=== PATIENT | female | born 1995 | race Caucasian/White ===

== ENCOUNTER 2016-03-05 14:07 | Emergency (ER) | payer OTHER ==
[2016-03-05 15:09] LABS: MEAN CORPUSCULAR HEMOGLOBIN 29.8 pg (27.0-33.0); MEAN CORPUSCULAR HGB CONC 33.6 g/dl (32.0-36.5); MEAN CORPUSCULAR VOLUME 88.5 fl (80.0-96.0); RED CELL DISTRIBUTION WIDTH 12.1 % (11.5-14.5); WHITE BLOOD COUNT 8.6 K/mm3 (4.0-10.0)
[2016-03-05 15:15] LABS: CONTROL LINE HCG INT CTR LINE PRESENT
--- NOTE | 2016-03-05 16:20 | REP ---
Emergency first trimester obstetric sonography: History: Vaginal bleeding. Findings: Transabdominal and transvaginal scanning are performed. Uterine dimensions are 8.4 x 4.0 x 4.9 cm. There is a small sac-like structure in the uterine endometrium with a mean sac size diameter of 4.5 mm. This would correspond with a gestational age estimate of 5 weeks 1 day. This is only seen on transvaginal scanning. It does not well established echogenic rim or margin. It contains no observable products of conception. No free fluid is seen. The right ovary is seen measuring 2.2 x 2.8 x 2.6 cm. It contains a 2.0 x 1.7 x 1.5 cm anechoic cyst. The Doppler flow within the right ovary is normal with resistive index 0.52. Left ovary has a normal appearance with dimensions of 2.7 x 1.5 x 1.9 cm. Its Doppler flow is normal with resistive index 0.77. Impression: Questionable intrauterine gestational sac 4-eums-3-day size. No yolk sac or embryonic pole. Nonspecific sonographic findings: A 2.0 cm cyst in the right ovary. No free fluid. Clinical and possibly sonographic followup advised. Signed by Sherman Lundberg MD 03/05/2016 04:33 P
--- NOTE | 2016-03-05 17:10 | EDDOCDS ---
Nurse's Notes [facility] Name: Jacquelyn Lewis Age: 21 yrs Sex: Female : 1995 Arrival Date: 03/05/2016 Time: 14:07 Bed TR7 Private MD: NO PRIMARY PHYSICIAN, . Diagnosis: related conditions, unspecified, first trimester Presentation: 03/05 14:11 Presenting complaint: Patient states: Has taken 4 home tests which were mcp positive. Started with cramping today, denies any vag bleeding, vomiting started today. Adult Sepsis Screening: The patient does not have new or worsening altered mentation. Patient's respiratory rate is less than 22. Systolic blood pressure is greater than 100. Patient has a qSOFA score of 0- Negative Sepsis Screen. Suicide/Homicide risk assessment- the patient denies having any suicidal and/or homicidal ideations and does not present with any other emotional, behavioral or mental health complaints. Status: The patient is a dependent. Transition of care: patient was not received from another setting of care. 14:11 Acuity: CHANEL Level 3 [facility] 14:11 Method Of Arrival: Walkin/Carried/Asstd [facility] Triage Assessment: 14:13 General: Appears uncomfortable, Behavior is cooperative. Pain: Location: right lower mcp quadrant and left lower quadrant Pain currently is 6 out of 10 on a pain scale. Quality of pain is described as crampy. HIV screening NA for this visit Offered previously. Neurological: No deficits noted. Respiratory: Airway is patent Respiratory effort is even, unlabored. GI: Reports cramping. Derm: Skin is pink, warm & dry. 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 none - PMHx: proteinuria; - PSHx: none; - Social history: Smoking status: Patient states was never smoker of tobacco. No barriers to communication noted, The patient speaks fluent Angolan. - Family history: Not pertinent. - : The pt / caregiver states he / she is not on anticoagulants. Home medication list is obtained from the patient. - Exposure Risk Screening:: None identified. Screenin:34 Screening information is obtained from the patient. Fall risk: No risks identified. mcp Assistance ADL's: requires no assistance with activities of daily living. Abuse/DV Screen: The patient / caregiver reports he/she is: not in a situation that causes fear, pain or injury. Nutritional screening: No deficits noted. Advance Directives: There is no active DNR order. home support is adequate. Assessment: 14:34 General: Appears in no apparent distress, Behavior is cooperative. Pain: Location: left mcp lower quadrant and right lower quadrant Pain currently is 6 out of 10 on a pain scale. Quality of pain is described as crampy. Neurological: No deficits noted. Respiratory: Airway is patent Respiratory effort is even, unlabored. Derm: Skin is pink, warm & dry. 17:07 GI: Bowel sounds present X 4 quads. Abd is soft X 4 quads. [facility] Vital Signs: 14:09 BP 113 / 70; Pulse 73; Resp 18 S; Temp 96.6(O); Pulse Ox 100% on R/A; Weight 63.5 kg dd6 (R); Height 5 ft. 6 in. (167.64 cm) (R); 16:37 BP 110 / 67; Pulse 70; Resp 18; Temp 98.7(TE); Pulse Ox 99% on R/A; Pain 0/10; mdr 14:09 Body Mass Index 22.60 (63.50 kg, 167.64 cm) dd6 Vitals: 14:09 Log In Time: March 05, 2016 at 14:07. dd6 ED Course: 14:08 Patient visited by Juan R Pulliam PCA. dd6 14:08 Patient moved to Waiting dd6 14:09 NO PRIMARY PHYSICIAN, . is Private Physician. dd6 14:10 Patient moved to Pre RCE dd6 14:12 Triage Initiated [facility] 14:14 Patient visited by Ruchi Long, RN. [facility] 14:24 Enid Allen MD is Attending Physician. sd1 14:24 Patient moved to PD [facility] 14:25 Patient visited by Enid Allen MD. sd1 14:35 Patient visited by Ruchi Long, RN. [facility] 14:35 The patient / caregiver is instructed regarding the plan of care and ED course. Patient [facility] has correct armband on for positive identification. Bed in low position. Call light in reach. 14:55 Type & Screen Sent. mdr 14:55 CBC Sent. mdr 14:55 HCG,Serum Qualitative Sent. mdr 16:31 [facility] is Referral Physician. sd1 16:37 Patient visited by Misha Chong PCA. mdr 16:44 US 1st trimester Returned. EDMS 16:49 Patient name changed from Jacquelyn\S\\S\Ortt\S\ to Jacquelyn\S\ \S\Ortt. EDMS 16:49 Urine Culture Sent. mdr 16:51 [facility] Payment Agreement was scanned into [employer] [place] and attached to record. gb 17:06 No IV's were initiated during this patient's visit. No procedures done that require mcp assistance. 17:08 Patient moved to 7 [facility] Point of Care Testing: Urine : 14:34 hCG Reading: Positive; mcp Ranges: Order Results: Lab Order: HCG,Serum Qualitative; SPEC'M 03/05/16 14:46 Test: HCG, SERUM QUALITATIVE; Value: POSITIVE; Range: NEGATIVE; Abnormal: Abnormal; Status: F Lab Order: CBC; SPEC'M 03/05/16 14:46 Test: WHITE BLOOD COUNT; Value: 8.6; Range: 4.0-10.0; Units: K/mm3; Status: F Test: RED BLOOD COUNT; Value: 4.19; Range: 4.00-5.40; Units: M/mm3; Status: F Test: HEMOGLOBIN; Value: 12.5; Range: 12.0-16.0; Units: g/dl; Status: F Test: HEMATOCRIT; Value: 37.0; Range: 36.0-47.0; Units: %; Status: F Test: MEAN CORPUSCULAR VOLUME; Value: 88.5; Range: 80.0-96.0; Units: fl; Status: F Test: MEAN CORPUSCULAR HEMOGLOBIN; Value: 29.8; Range: 27.0-33.0; Units: pg; Status: F Test: MEAN CORPUSCULAR HGB CONC; Value: 33.6; Range: 32.0-36.5; Units: g/dl; Status: F Test: RED CELL DISTRIBUTION WIDTH; Value: 12.1; Range: 11.5-14.5; Units: %; Status: F Test: PLATELET COUNT, AUTOMATED; Value: 303; Range: 150-450; Units: k/mm3; Status: F Lab Order: Type & Screen; [facility] 03/05/16 14:46 Test: BLOOD TYPE; Value: B POS; Status: F Test: AB SCREEN (INDIRECT GEMMA)GEL; Value: NEGATIVE; Status: F Lab Order: Wet Prep; [facility] 03/05/16 14:46 Test: WET PREP; Value: WET PREP RESULT; Status: F Test: WET PREP; Value: MANY EPITHELIAL CELLS PRESENT; Status: F Test: WET PREP; Value: FEW WBC; Status: F Test: WET PREP; Value: MODERATE LONG RODS PRESENT; Status: F Test: WET PREP; Value: Comments:; Status: F Test Note: ; Specimen did not meet the 1 hour time limit from collection to examination. Trichomonas vaginalis loses motility quickly therefore, samples need to be examined within 1 hour of collection to optimally identify this organism. Lab Order: Hcg, Serum Quantitative; [facility] 03/05/16 14:46 Test: HCG, SERUM QUANTITATIVE; Value: 1438; Units: MIU/ML; Status: F Test Note: ; GESTATIONAL AGE APPROXIMATE HCG RANGE (MIU/ML) 0.2-1 WEEK 5-50 1-2 WEEKS 50-500 2-3 WEEKS 100-5,000 3-4 WEEKS 500-10,000 4-5 WEEKS 1,000-50,000 5-6 WEEKS 10,000-100,000 6-8 WEEKS 15,000-200,000 2-3 MONTHS 10,000-100,000 NON FEMALES LESS THAN 3.0 Patient samples may contain human heterophilic antibodies that could react with immunoassays to give falsely elevated or depressed results. This assay has been designed to minimize interference from heterophilic antibodies. Elevated hCG levels have also been associated with trophoblastic disease and nontrophoblastic neoplasms. The possibility of having these diseases should be considered before a diagnosis of is made. This test is not intended for use as a surrogate marker for aiding in the diagnosis or monitoring the treatment of cancer patients. Siemens EcoFactor methodology. Radiology Order: US 1st trimester Test: US 1st trimester REASON FOR EXAMINATION: VB; Emergency first trimester obstetric sonography:; ; History: Vaginal bleeding.; ; Findings: Transabdominal and transvaginal scanning are performed. Uterine; dimensions are 8.4 x 4.0 x 4.9 cm. There is a small sac-like structure in the; uterine endometrium with a mean sac size diameter of 4.5 mm. This would; correspond with a gestational age estimate of 5 weeks 1 day. This is only seen; on transvaginal scanning. It does not well established echogenic rim or margin.; It contains no observable products of conception. No free fluid is seen. The; right ovary is seen measuring 2.2 x 2.8 x 2.6 cm. It contains a 2.0 x 1.7 x 1.5; cm anechoic cyst. The Doppler flow within the right ovary is normal with; resistive index 0.52. Left ovary has a normal appearance with dimensions of 2.7; x 1.5 x 1.9 cm. Its Doppler flow is normal with resistive index 0.77.; ; Impression:; ; Questionable intrauterine gestational sac 9-qigd-7-day size. No yolk sac or; embryonic pole. Nonspecific sonographic findings: A 2.0 cm cyst in the right; ovary. No free fluid. Clinical and possibly sonographic followup advised.; ; ; Signed by; Sherman Lundberg MD 03/05/2016 04:33 P; Outcome: 16:31 Discharge ordered by Provider. sd1 17:06 Discharge Assessment: patient administered narcotics - no. The following High Risk [facility] Discharge criteria are identified: None. Discharged to home ambulatory, with significant other. Condition: stable. Discharge instructions given to patient, Instructed on discharge instructions, follow up and referral plans. medication usage, Demonstrated understanding of instructions, medications, Pt was receptive of discharge instructions/ teaching. Prescriptions given X 1. Ultrasound Study completed. Property sent home with patient. 17:09 Patient left the ED. [facility] Signatures: Dispatcher [employer] EDMS Enid Allen MD MD sd1 Ruchi Long RN RN [facility] Stacie Granado, Asif Reg Juan R Lunsford, DATABASE MANAGEMENT SPECIALIST DATABASE MANAGEMENT SPECIALIST dd6 Misha Chong, DATABASE MANAGEMENT SPECIALIST DATABASE MANAGEMENT SPECIALIST mdr MTDD
--- NOTE | 2016-03-05 17:10 | EDDOCDS ---
Physician Documentation [facility] Name: Jacquelyn Lewis Age: 21 yrs Sex: Female : 1995 Arrival Date: 03/05/2016 Time: 14:07 Bed TR7 Private MD: NO PRIMARY PHYSICIAN, . Disposition: 03/05/16 16:31 Discharged to Home/Self Care. Impression: related conditions, unspecified, first trimester. - Condition is Stable. - Discharge Instructions: Abdominal Pain During . - Prescriptions for Vitamin 27- 0.8 mg Oral Tablet - take 1 tablet by ORAL route once daily; 60 tablet. - Medication Reconciliation, Local Pharmacy Hours form. - Follow up: Chikis Valdez, [facility]; When: 2 - 3 days. - Problem is new. - Symptoms are unchanged. - Notes: return to ED for vaginal bleeding saturating more than one pad per hour, abdominal pain, worsening symptoms or other concerns Historical: - Allergies: no known allergies; - Home Meds: 1. none - PMHx: proteinuria; - PSHx: none; - Social history: Smoking status: Patient states was never smoker of tobacco. No barriers to communication noted, The patient speaks fluent Korean. - Family history: Not pertinent. - : The pt / caregiver states he / she is not on anticoagulants. Home medication list is obtained from the patient. - Exposure Risk Screening:: None identified. 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 6 in. (167.64 cm) (R); 16:37 BP 110 / 67; Pulse 70; Resp 18; Temp 98.7(TE); Pulse Ox 99% on R/A; Pain 0/10; mdr 14:09 Body Mass Index 22.60 (63.50 kg, 167.64 cm) dd6 MDM: 14:14 UCG by Nursing ordered. dt4 14:35 Set up pelvic ordered. sd1 14:36 HCG,Serum Qualitative Ordered. EDMS 14:36 CBC Ordered. EDMS 14:36 Type & Screen Ordered. EDMS 14:36 GC & Chlamydia Amplification Ordered. EDMS 14:36 Wet Prep Ordered. EDMS 14:37 US 1st trimester Ordered. EDMS 15:22 DUPLEX SCAN LIMITED (DOPPLER) Ordered. EDMS 15:22 TRANSVAGINAL US Ordered. EDMS 15:46 HCG,Serum Qualitative Reviewed. sd1 15:46 CBC Reviewed. sd1 15:46 Type & Screen Reviewed. sd1 15:48 Hcg, Serum Quantitative Ordered. EDMS 16:29 Wet Prep Reviewed. sd1 16:29 Hcg, Serum Quantitative Reviewed. sd1 16:30 Urine Culture Ordered. EDMS 16:43 Financial registration complete. 16:51 ON LICENSE OF [facility] Payment Agreement was scanned into [employer] and attached to record. Point of Care Testing: Urine : 14:34 hCG Reading: Positive; mcp Ranges: Signatures: Dispatcher [employer] Enid Piper MD MD sd1 Ruchi Long RN RN [facility] Stacie Granado, Reg Reg Lita Ramirez, ANTOINETTE PA-Osorio dt4 The chart was reviewed and I authenticate all verbal orders and agree with the evaluation and treatment provided.Attachments: 16:51 [facility] Payment Agreement gb MTDD
--- NOTE | 2016-03-07 18:09 | EDDOCDS ---
Physician Documentation [facility] Name: Jacquelyn Lewis Age: 21 yrs Sex: Female : 1995 Arrival Date: 03/05/2016 Time: 14:07 Bed TR7 Private MD: NO PRIMARY PHYSICIAN, . Disposition: 03/05/16 16:31 Discharged to Home/Self Care. Impression: related conditions, unspecified, first trimester. - Condition is Stable. - Discharge Instructions: Abdominal Pain During . - Prescriptions for Vitamin 27- 0.8 mg Oral Tablet - take 1 tablet by ORAL route once daily; 60 tablet. - Medication Reconciliation, Local Pharmacy Hours form. - Follow up: Chikis Valdez, [facility]; When: 2 - 3 days. - Problem is new. - Symptoms are unchanged. - Notes: return to ED for vaginal bleeding saturating more than one pad per hour, abdominal pain, worsening symptoms or other concerns Historical: - Allergies: no known allergies; - Home Meds: 1. none - PMHx: proteinuria; - PSHx: none; - Social history: Smoking status: Patient states was never smoker of tobacco. No barriers to communication noted, The patient speaks fluent Belarusian. - Family history: Not pertinent. - : The pt / caregiver states he / she is not on anticoagulants. Home medication list is obtained from the patient. - Exposure Risk Screening:: None identified. 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 6 in. (167.64 cm) (R); 16:37 BP 110 / 67; Pulse 70; Resp 18; Temp 98.7(TE); Pulse Ox 99% on R/A; Pain 0/10; mdr 14:09 Body Mass Index 22.60 (63.50 kg, 167.64 cm) dd6 MDM: 14:14 UCG by Nursing ordered. dt4 14:35 Set up pelvic ordered. sd1 14:36 HCG,Serum Qualitative Ordered. EDMS 14:36 CBC Ordered. EDMS 14:36 Type & Screen Ordered. EDMS 14:36 GC & Chlamydia Amplification Ordered. EDMS 14:36 Wet Prep Ordered. EDMS 14:37 US 1st trimester Ordered. EDMS 15:22 DUPLEX SCAN LIMITED (DOPPLER) Ordered. EDMS 15:22 TRANSVAGINAL US Ordered. EDMS 15:46 HCG,Serum Qualitative Reviewed. sd1 15:46 CBC Reviewed. sd1 15:46 Type & Screen Reviewed. sd1 15:48 Hcg, Serum Quantitative Ordered. EDMS 16:29 Wet Prep Reviewed. sd1 16:29 Hcg, Serum Quantitative Reviewed. sd1 16:30 Urine Culture Ordered. EDMS 16:43 Financial registration complete. gb 16:51 [facility] Payment Agreement was scanned into [employer] and attached to record. 03/06 11:04 T-Sheet-- Draft Copy was scanned into [employer] and attached to record. gb 11:05 Radiology Report was scanned into [employer] and attached to record. Point of Care Testing: Urine : 03/05 14:34 hCG Reading: Positive; mcp Ranges: Signatures: Dispatcher [employer] Enid Piper MD MD sd1 Ruchi Long RN RN mcp Stacie Granado, Reg Reg Lita Ramirez PA-C PA-C dt4 The chart was reviewed and I authenticate all verbal orders and agree with the evaluation and treatment provided.Attachments: 16:51 [facility] Payment Agreement 03/06 11:04 T-Sheet-- Draft Copy gb Chart Complete MTDD
--- NOTE | 2016-03-07 18:09 | EDDOCDS ---
Physician Documentation [facility] Name: Jacquelyn Lewis Age: 21 yrs Sex: Female : 1995 Arrival Date: 03/05/2016 Time: 14:07 Bed TR7 Private MD: NO PRIMARY PHYSICIAN, . Disposition: 03/05/16 16:31 Discharged to Home/Self Care. Impression: related conditions, unspecified, first trimester. - Condition is Stable. - Discharge Instructions: Abdominal Pain During . - Prescriptions for Vitamin 27- 0.8 mg Oral Tablet - take 1 tablet by ORAL route once daily; 60 tablet. - Medication Reconciliation, Local Pharmacy Hours form. - Follow up: Chikis Valdez, [facility]; When: 2 - 3 days. - Problem is new. - Symptoms are unchanged. - Notes: return to ED for vaginal bleeding saturating more than one pad per hour, abdominal pain, worsening symptoms or other concerns Historical: - Allergies: no known allergies; - Home Meds: 1. none - PMHx: proteinuria; - PSHx: none; - Social history: Smoking status: Patient states was never smoker of tobacco. No barriers to communication noted, The patient speaks fluent Yi. - Family history: Not pertinent. - : The pt / caregiver states he / she is not on anticoagulants. Home medication list is obtained from the patient. - Exposure Risk Screening:: None identified. 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 6 in. (167.64 cm) (R); 16:37 BP 110 / 67; Pulse 70; Resp 18; Temp 98.7(TE); Pulse Ox 99% on R/A; Pain 0/10; mdr 14:09 Body Mass Index 22.60 (63.50 kg, 167.64 cm) dd6 MDM: 14:14 UCG by Nursing ordered. dt4 14:35 Set up pelvic ordered. sd1 14:36 HCG,Serum Qualitative Ordered. EDMS 14:36 CBC Ordered. EDMS 14:36 Type & Screen Ordered. EDMS 14:36 GC & Chlamydia Amplification Ordered. EDMS 14:36 Wet Prep Ordered. EDMS 14:37 US 1st trimester Ordered. EDMS 15:22 DUPLEX SCAN LIMITED (DOPPLER) Ordered. EDMS 15:22 TRANSVAGINAL US Ordered. EDMS 15:46 HCG,Serum Qualitative Reviewed. sd1 15:46 CBC Reviewed. sd1 15:46 Type & Screen Reviewed. sd1 15:48 Hcg, Serum Quantitative Ordered. EDMS 16:29 Wet Prep Reviewed. sd1 16:29 Hcg, Serum Quantitative Reviewed. sd1 16:30 Urine Culture Ordered. EDMS 16:43 Financial registration complete. gb 16:51 [facility] Payment Agreement was scanned into [employer] and attached to record. 03/06 11:04 T-Sheet-- Draft Copy was scanned into [employer] and attached to record. gb 11:05 Radiology Report was scanned into [employer] and attached to record. Point of Care Testing: Urine : 03/05 14:34 hCG Reading: Positive; mcp Ranges: Signatures: Dispatcher [employer] Enid Piper MD MD sd1 Ruchi Long RN RN mcp Stacie Granado, Reg Reg Lita Ramirez PA-C PA-C dt4 The chart was reviewed and I authenticate all verbal orders and agree with the evaluation and treatment provided.Attachments: 16:51 [facility] Payment Agreement 03/06 11:04 T-Sheet-- Draft Copy gb Chart Complete MTDD
--- NOTE | 2016-03-07 18:10 | EDDOCDS ---
Nurse's Notes [facility] Name: Jacquelyn Lewis Age: 21 yrs Sex: Female : 1995 Arrival Date: 03/05/2016 Time: 14:07 Bed TR7 Private MD: NO PRIMARY PHYSICIAN, . Diagnosis: related conditions, unspecified, first trimester Presentation: 03/05 14:11 Presenting complaint: Patient states: Has taken 4 home tests which were mcp positive. Started with cramping today, denies any vag bleeding, vomiting started today. Adult Sepsis Screening: The patient does not have new or worsening altered mentation. Patient's respiratory rate is less than 22. Systolic blood pressure is greater than 100. Patient has a qSOFA score of 0- Negative Sepsis Screen. Suicide/Homicide risk assessment- the patient denies having any suicidal and/or homicidal ideations and does not present with any other emotional, behavioral or mental health complaints. Status: The patient is a dependent. Transition of care: patient was not received from another setting of care. 14:11 Acuity: CHANEL Level 3 [facility] 14:11 Method Of Arrival: Walkin/Carried/Asstd [facility] Triage Assessment: 14:13 General: Appears uncomfortable, Behavior is cooperative. Pain: Location: right lower mcp quadrant and left lower quadrant Pain currently is 6 out of 10 on a pain scale. Quality of pain is described as crampy. HIV screening NA for this visit Offered previously. Neurological: No deficits noted. Respiratory: Airway is patent Respiratory effort is even, unlabored. GI: Reports cramping. Derm: Skin is pink, warm & dry. 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 none - PMHx: proteinuria; - PSHx: none; - Social history: Smoking status: Patient states was never smoker of tobacco. No barriers to communication noted, The patient speaks fluent Tajik. - Family history: Not pertinent. - : The pt / caregiver states he / she is not on anticoagulants. Home medication list is obtained from the patient. - Exposure Risk Screening:: None identified. Screenin:34 Screening information is obtained from the patient. Fall risk: No risks identified. mcp Assistance ADL's: requires no assistance with activities of daily living. Abuse/DV Screen: The patient / caregiver reports he/she is: not in a situation that causes fear, pain or injury. Nutritional screening: No deficits noted. Advance Directives: There is no active DNR order. home support is adequate. Assessment: 14:34 General: Appears in no apparent distress, Behavior is cooperative. Pain: Location: left mcp lower quadrant and right lower quadrant Pain currently is 6 out of 10 on a pain scale. Quality of pain is described as crampy. Neurological: No deficits noted. Respiratory: Airway is patent Respiratory effort is even, unlabored. Derm: Skin is pink, warm & dry. 17:07 GI: Bowel sounds present X 4 quads. Abd is soft X 4 quads. [facility] Vital Signs: 14:09 BP 113 / 70; Pulse 73; Resp 18 S; Temp 96.6(O); Pulse Ox 100% on R/A; Weight 63.5 kg dd6 (R); Height 5 ft. 6 in. (167.64 cm) (R); 16:37 BP 110 / 67; Pulse 70; Resp 18; Temp 98.7(TE); Pulse Ox 99% on R/A; Pain 0/10; mdr 14:09 Body Mass Index 22.60 (63.50 kg, 167.64 cm) dd6 Vitals: 14:09 Log In Time: March 05, 2016 at 14:07. dd6 ED Course: 14:08 Patient visited by Juan R Pulliam PCA. dd6 14:08 Patient moved to Waiting dd6 14:09 NO PRIMARY PHYSICIAN, . is Private Physician. dd6 14:10 Patient moved to Pre RCE dd6 14:12 Triage Initiated [facility] 14:14 Patient visited by Ruchi Long, RN. [facility] 14:24 Enid Aleln MD is Attending Physician. sd1 14:24 Patient moved to PD [facility] 14:25 Patient visited by Enid Allen MD. sd1 14:35 Patient visited by Ruchi Long, RN. [facility] 14:35 The patient / caregiver is instructed regarding the plan of care and ED course. Patient [facility] has correct armband on for positive identification. Bed in low position. Call light in reach. 14:55 Type & Screen Sent. mdr 14:55 CBC Sent. mdr 14:55 HCG,Serum Qualitative Sent. mdr 16:31 [facility] is Referral Physician. sd1 16:37 Patient visited by Misha Chong PCA. mdr 16:44 US 1st trimester Returned. EDMS 16:49 Patient name changed from Jacquelyn\S\\S\Ortt\S\ to Jacquelyn\S\ \S\Ortt. EDMS 16:49 Urine Culture Sent. mdr 16:51 [facility] [place] Payment Agreement was scanned into Rico and attached to record. gb 17:06 No IV's were initiated during this patient's visit. No procedures done that require [facility] assistance. 17:08 Patient moved to [address] 03/06 11:04 T-Sheet-- Draft Copy was scanned into Rico and attached to record. gb 11:05 Radiology Report was scanned into Rico and attached to record. gb Point of Care Testing: Urine : 03/05 14:34 hCG Reading: Positive; mcp Ranges: Order Results: Lab Order: HCG,Serum Qualitative; SPEC'M 03/05/16 14:46 Test: HCG, SERUM QUALITATIVE; Value: POSITIVE; Range: NEGATIVE; Abnormal: Abnormal; Status: F Lab Order: CBC; SPEC'M 03/05/16 14:46 Test: WHITE BLOOD COUNT; Value: 8.6; Range: 4.0-10.0; Units: K/mm3; Status: F Test: RED BLOOD COUNT; Value: 4.19; Range: 4.00-5.40; Units: M/mm3; Status: F Test: HEMOGLOBIN; Value: 12.5; Range: 12.0-16.0; Units: g/dl; Status: F Test: HEMATOCRIT; Value: 37.0; Range: 36.0-47.0; Units: %; Status: F Test: MEAN CORPUSCULAR VOLUME; Value: 88.5; Range: 80.0-96.0; Units: fl; Status: F Test: MEAN CORPUSCULAR HEMOGLOBIN; Value: 29.8; Range: 27.0-33.0; Units: pg; Status: F Test: MEAN CORPUSCULAR HGB CONC; Value: 33.6; Range: 32.0-36.5; Units: g/dl; Status: F Test: RED CELL DISTRIBUTION WIDTH; Value: 12.1; Range: 11.5-14.5; Units: %; Status: F Test: PLATELET COUNT, AUTOMATED; Value: 303; Range: 150-450; Units: k/mm3; Status: F Lab Order: Type & Screen; [facility] 03/05/16 14:46 Test: BLOOD TYPE; Value: B POS; Status: F Test: AB SCREEN (INDIRECT GEMMA)GEL; Value: NEGATIVE; Status: F Lab Order: GC & Chlamydia Amplification; [facility] 03/05/16 14:46 Test: CHLAMYDIA DNA AMPLIFICATION; Value: NEGATIVE; Range: NEGATIVE; Status: F Test: GC DNA AMPLIFICATION; Value: NEGATIVE; Range: NEGATIVE; Status: F Lab Order: Wet Prep; [facility] 03/05/16 14:46 Test: WET PREP; Value: WET PREP RESULT; Status: F Test: WET PREP; Value: MANY EPITHELIAL CELLS PRESENT; Status: F Test: WET PREP; Value: FEW WBC; Status: F Test: WET PREP; Value: MODERATE LONG RODS PRESENT; Status: F Test: WET PREP; Value: Comments:; Status: F Test Note: ; Specimen did not meet the 1 hour time limit from collection to examination. Trichomonas vaginalis loses motility quickly therefore, samples need to be examined within 1 hour of collection to optimally identify this organism. Lab Order: Hcg, Serum Quantitative; [facility] 03/05/16 14:46 Test: HCG, SERUM QUANTITATIVE; Value: 1438; Units: MIU/ML; Status: F Test Note: ; GESTATIONAL AGE APPROXIMATE HCG RANGE (MIU/ML) 0.2-1 WEEK 5-50 1-2 WEEKS 50-500 2-3 WEEKS 100-5,000 3-4 WEEKS 500-10,000 4-5 WEEKS 1,000-50,000 5-6 WEEKS 10,000-100,000 6-8 WEEKS 15,000-200,000 2-3 MONTHS 10,000-100,000 NON FEMALES LESS THAN 3.0 Patient samples may contain human heterophilic antibodies that could react with immunoassays to give falsely elevated or depressed results. This assay has been designed to minimize interference from heterophilic antibodies. Elevated hCG levels have also been associated with trophoblastic disease and nontrophoblastic neoplasms. The possibility of having these diseases should be considered before a diagnosis of is made. This test is not intended for use as a surrogate marker for aiding in the diagnosis or monitoring the treatment of cancer patients. [employer] methodology. Lab Order: Urine Culture; SPEC'M 03/05/16 16:47 Test: URINE CULTURE; Value: <EXTERNAL COMMENT eCWMed> FULL REPORT IN LAB NOTES (eCW and Medent).; Status: F Test: URINE CULTURE; Value: URINE CULTURE RESULT NO GROWTH; Status: F Radiology Order: US 1st trimester Test: US 1st trimester REASON FOR EXAMINATION: VB; Emergency first trimester obstetric sonography:; ; History: Vaginal bleeding.; ; Findings: Transabdominal and transvaginal scanning are performed. Uterine; dimensions are 8.4 x 4.0 x 4.9 cm. There is a small sac-like structure in the; uterine endometrium with a mean sac size diameter of 4.5 mm. This would; correspond with a gestational age estimate of 5 weeks 1 day. This is only seen; on transvaginal scanning. It does not well established echogenic rim or margin.; It contains no observable products of conception. No free fluid is seen. The; right ovary is seen measuring 2.2 x 2.8 x 2.6 cm. It contains a 2.0 x 1.7 x 1.5; cm anechoic cyst. The Doppler flow within the right ovary is normal with; resistive index 0.52. Left ovary has a normal appearance with dimensions of 2.7; x 1.5 x 1.9 cm. Its Doppler flow is normal with resistive index 0.77.; ; Impression:; ; Questionable intrauterine gestational sac 0-fnpg-3-day size. No yolk sac or; embryonic pole. Nonspecific sonographic findings: A 2.0 cm cyst in the right; ovary. No free fluid. Clinical and possibly sonographic followup advised.; ; ; Signed by; Sherman Lundberg MD 03/05/2016 04:33 P; Outcome: 16:31 Discharge ordered by Provider. sd1 17:06 Discharge Assessment: patient administered narcotics - no. The following High Risk mcp Discharge criteria are identified: None. Discharged to home ambulatory, with significant other. Condition: stable. Discharge instructions given to patient, Instructed on discharge instructions, follow up and referral plans. medication usage, Demonstrated understanding of instructions, medications, Pt was receptive of discharge instructions/ teaching. Prescriptions given X 1. Ultrasound Study completed. Property sent home with patient. 17:09 Patient left the ED. [facility] Signatures: Dispatcher [employer] EDPR Enid Allen MD MD sd1 Ruchi Long, RN RN [facility] Stacie Granado, Reg Reg Juan R Lunsford, JDE DEVELOPER JDE DEVELOPER dd6 Misha Chong, JDE DEVELOPER JDE DEVELOPER mdr Chart Complete MTDD
== END 2016-03-05 17:09 | disposition home or self-care (01) ==
LOC: M ED 14:07
DX: O99.89 Other specified diseases and conditions complicating pregnancy, childbirth and the puerperium (principal); R10.2 Pelvic and perineal pain; Z3A.00 Weeks of gestation of pregnancy not specified

== ENCOUNTER → 2016-03-07 | Outpatient (CLI) | payer OTHER | LOC: M LAB 12:06 | PROVIDERS: ATTEND Emergency Medicine | DX: Z36 Encounter for antenatal screening of mother (principal) ==

== ENCOUNTER → 2016-10-02 | Outpatient (CLI) | payer OTHER ==
[~2016-10-02] VITALS: Ht 167.6 cm; Wt 84.0 kg
[~2016-10-02] MED LIST: ACET25TA12 PO; ACET50TA PO; PRENTAB9 PO
[2016-10-02 19:07] VITALS: BP 132/79
[2016-10-02 20:02] VITALS: BP 121/67
--- NOTE | 2016-10-03 21:26 | HPE ---
DATE OF ADMISSION: 10/02/2016 This lady is a 21-year-old 1, para 0, LMP 02/01/2016, EDC 10/07/2016, at 35 weeks, history of [place] contractions, painful for over an hour. No loss of fluid or vaginal bleeding. Risk factors is she has a two-vessel cord, is continued for growth scans and has proteinuria which has been evaluated and found to be negative. She also has atypical antibodies not concerning for the fetus. Her labs are B+, antibody screen is positive, hepatitis negative, HIV negative, RPR negative, rubella immune. Pap normal. Urine negative. Gonorrhea and chlamydia negative. 1-hour glucose was not done. Urine is 1.010, pH 7, negative for everything. Temperature is 98.8, 132/79, respirations are 16, pulse is 91. Category one strip. There is the occasional tightening about three per hour. The patient seems to react because of the pain and is worried and concerned about when she has actual contractions how she is going to manage with the pain. On pelvic examination, cervix is long, closed, posterior, thick and high, one finger tip. No vaginal loss or bleeding, vertex and again the category one strip. Soft bowel sounds and nontender uterus. The rest of the examination is unremarkable. She is normocephalic, atraumatic. Neck full range of motions. Pupils equal and reactive to light. Distal pulses symmetric. We have counseled her multiple times about crossing her ankles which could cause her to have increased stasis and blood clots. Chest is clear bilaterally to bases. No wheezes or rhonchi. No CVA tenderness. Uterus is nontender. Four quadrant bowel sounds are appropriate and symphysis fundus height is appropriate. No rashes, lesions or pruritus. No arthralgia or myalgia. No complaints of cough, wheezes, shortness of breath or dyspnea on exertion. No chest pain. No bleeding. Neurologically complete. No urinary tract issues. No incontinency, urgency, or frequency. No nausea, vomiting, diarrhea or constipation. We are uncertain about her diabetic status. She did not do her 1-hour glucose. She has no abnormal Pap smears or STDs. Past medical, surgical and family history noncontributory. She does not smoke, drink or abuse drugs. She is . 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 In summary, we have a lady who has had [place] contractions which seems to be disproportionate to the pain that she is having. She was counseled regarding kick chart, premature rupture of membranes, bleeding and labor, and when to call the provider. She is to keep her appointment 1 week from now. She was discharged undelivered.
== END ==
LOC: M LDO 18:50
PROVIDERS: ATTEND Obstetrics & Gynecology
DX: O47.03 False labor before 37 completed weeks of gestation, third trimester (principal); Z3A.35 35 weeks gestation of pregnancy

== ENCOUNTER 2016-10-12 13:02 | Outpatient (CLI) | payer OTHER ==
[~2016-10-12] VITALS: Ht 167.6 cm; Wt 84.0 kg
[2016-10-12 13:20] VITALS: BP 129/68
[2016-10-12] MEDS ORDERED: PRENTAB9 PO (13:33)
[2016-10-12] MEDS ORDERED: ACET50TA PO (13:34)
== END 2016-10-12 14:25 | disposition home or self-care (01) ==
LOC: M LDO 13:02
PROVIDERS: ATTEND Obstetrics & Gynecology
DX: O47.03 False labor before 37 completed weeks of gestation, third trimester (principal); Z3A.36 36 weeks gestation of pregnancy; Z91.010 Allergy to peanuts; Z91.018 Allergy to other foods

== ENCOUNTER 2016-10-31 14:38 | Outpatient (CLI) | payer OTHER ==
[~2016-10-31] VITALS: Ht 167.6 cm; Wt 89.0 kg
[~2016-10-31 14:38] MED LIST changes: -ACET25TA12 PO
[2016-10-31 15:57] VITALS: BP 135/74
[2016-10-31] MEDS ORDERED: ACET25TA12 PO (16:00)
[2016-10-31 17:22] VITALS: BP 127/71
== END 2016-10-31 17:37 | disposition home or self-care (01) ==
LOC: M LDO 14:38
PROVIDERS: ATTEND Obstetrics & Gynecology
DX: O47.1 False labor at or after 37 completed weeks of gestation (principal); Z3A.39 39 weeks gestation of pregnancy; Z91.018 Allergy to other foods; Z91.010 Allergy to peanuts; Z91.02 Food additives allergy status

== ENCOUNTER 2016-10-31 21:18 | Inpatient (IN) | payer OTHER ==
[~2016-10-31] VITALS: Ht 167.6 cm; Wt 89.0 kg
[~2016-10-31 21:18] MED LIST changes: +ACET25TA12 PO
[2016-10-31] MEDS ORDERED: LR 1,000 ML IV SCH (22:30)
[2016-10-31] MEDS ORDERED: LACTATED RINGER'S 1000 ML IV STA (22:30)
[2016-10-31 23:09] LABS: MEAN CORPUSCULAR HEMOGLOBIN 30.9 pg (27.0-33.0); MEAN CORPUSCULAR HGB CONC 34.6 g/dl (32.0-36.5); MEAN CORPUSCULAR VOLUME 89.2 fl (80.0-96.0); WHITE BLOOD COUNT 19.2 K/mm3 (4.0-10.0)
[2016-10-31 23:37] LABS: ANION GAP 10 MEQ/L (8-16); BLOOD UREA NITROGEN 6 MG/DL (7-18); CALCIUM LEVEL 9.5 MG/DL (8.5-10.1); CARBON DIOXIDE LEVEL 21 MEQ/L (21-32); CHLORIDE LEVEL 107 MEQ/L (98-107); CREATININE FOR GFR 0.59 MG/DL (0.55-1.02); GLOMERULAR FILTRATION RATE > 60.0 (>60); GLUCOSE, FASTING 92 MG/DL (70-105); POTASSIUM SERUM 3.8 MEQ/L (3.5-5.1); SODIUM LEVEL 138 MEQ/L (136-145)
--- NOTE | 2016-10-31 23:53 | HPEPDOC ---
Obstetrical History & Physical General Date of Admission Oct 31, 2016 at 21:50 History of Present Illness 21 y/o at 39+0 seen earlier today and sent home at ~3 cm. Was intact at the time. Several hours after home took a shower then noted a signif amt of fluid that continued to exit her vagina without bearing down, etc. Called and told to come in. Problem list: 2VC, got grth scans at 32 wks (60%ile) and 36 wks (80%ile) Chief Complaint: Contractions, term, LOF, term Information Provided By: Patient Care Care: Good Care Dating Final EDC by: LMP, 1st trimester (US) Past Medical History Allergies Coded Allergies: Apple (Verified Allergy, Unknown, 10/12/16) Chandler (Verified Allergy, Unknown, 10/12/16) NUTS (Verified Allergy, Unknown, 10/12/16) Soy Allergy (Verified Allergy, Unknown, 10/12/16) Medications Scheduled Multivitamins/ ( 27-0.8 mg) 1 Tab Tab, 1 TAB PO DAILY Scheduled PRN (Acetaminophen Pm Extra St 500-25 mg) 1 Tab Tab, 1 TAB PO PRN PRN for SLEEP Physical Examination Physical Examination GENERAL: Alert and oriented times three. BREAST: . ABDOMEN: Gravid and non-tender to touch. FETUS: Is vertex (VTX) by sterile vaginal examination (SVE), fetus is vertex ( VTX) by Stan. HEART RATE: Regular rate and rhythm. LUNGS: Clear to auscultation (CTA). EXTREMITIES: No edema. No clonus. Deep tendon reflexes (DTRs) + . Laboratory Data 24H LABS Laboratory Tests 2 10/31/16 22:45: Anion Gap 10, Glomerular Filtration Rate > 60.0, Blood Urea Nitrogen 6L, Creatinine 0.59, Sodium Level 138, Potassium Level 3.8, Chloride Level 107, Carbon Dioxide Level 21, Calcium Level 9.5, Urine Amphetamines Screen NEGATIVE, Urine Benzodiazepines Screen NEGATIVE, Urine Opiates Screen NEGATIVE, Urine Methadone Screen NEGATIVE, Urine Barbiturates Screen NEGATIVE, Urine Phencyclidine Screen NEGATIVE, Urine Cocaine Metabolite Screen NEGATIVE, Urine Cannabinoids Screen NEGATIVE 10/31/16 22:51: Serology Scanned Report Hepatitis B Testing CBC/BMP Laboratory Tests 10/31/16 22:45 Red Blood Count 3.91 L, Mean Corpuscular Volume 89.2, Mean Corpuscular Hemoglobin 30.9, Mean Corpuscular Hemoglobin Concent 34.6, Red Cell Distribution Width 13.0, Calcium Level 9.5 Assessment/Plan Assessment Confirmed SROM Plan Admit and orient. Table Tender and consent. Diet: clrs Labs and intravenous (IV) per unit protocol. Counseled on Pitocin and induction of labor (IOL). Lactated Ringers per IOL Anticipate normal spontaneous delivery () C-S as appropriate. SESSIONS,COLTON Gamez MD Oct 31, 2016 23:53
[2016-11-01] VITALS (26 sets, daily range): BP systolic 119–149; BP diastolic 55–94
[2016-11-01] MEDS ORDERED: OXYTOCIN 30 UNITS IN 0.9% NaCl 500ML IV BAG (J2590) As Ordered ONE (01:22)
[2016-11-01] MEDS ORDERED: FENTANYL 2MCG/ML ROPIVACAINE 0.2% IN 0.9% NACL 200ML IVBAG As Ordered ONE (03:18)
--- NOTE | 2016-11-01 03:33 | IPNPDOC ---
Text Note Date of Service The patient was seen on 11/01/16. NOTE NST Cat 1 Dr Rincon present for epidural placement Cx /-2 Pitocin going the last 90-120 min Recheck ~0600 Sessions VS,Theodore, I+O Theodore JONES I+O Laboratory Tests 10/31/16 22:45 Red Blood Count 3.91 L, Mean Corpuscular Volume 89.2, Mean Corpuscular Hemoglobin 30.9, Mean Corpuscular Hemoglobin Concent 34.6, Red Cell Distribution Width 13.0, Calcium Level 9.5 SESSIONS,COLTON Gamez MD Nov 01, 2016 03:33
--- NOTE | 2016-11-01 07:22 | IPNPDOC ---
Text Note Date of Service The patient was seen on 11/01/16. NOTE NST Cat1, reg ctx's. On 6 mu/min pitocin. Now s/p epidural Cx 5-6/90/-2, slightly more dilation than previous IUPC placed Will incr pitocin as needed to obtain adeq MVU's Sessions VS,Theodore, I+O VSTheodore I+O Laboratory Tests 10/31/16 22:45 Red Blood Count 3.91 L, Mean Corpuscular Volume 89.2, Mean Corpuscular Hemoglobin 30.9, Mean Corpuscular Hemoglobin Concent 34.6, Red Cell Distribution Width 13.0, Calcium Level 9.5 SESSIONS,COLTON Gamez MD Nov 01, 2016 07:22
[2016-11-01] MEDS ORDERED: EPIDURAL COMMENT XX SCH (09:15)
[2016-11-01] MEDS ORDERED: diphenhydrAMINE INJ 50MG/ML VIAL (J1200) IV PRN (09:15)
[2016-11-01] MEDS ORDERED: NALOXONE INJ 0.4 MG/1 ML VIAL (J2310) IV PRN (09:15)
[2016-11-01] MEDS ORDERED: LACTATED RINGER'S 1000 ML IV PRN (09:15)
[2016-11-01] MEDS ORDERED: FENTANYL/ROPIVACAINE/NACL BAG 200 ML EPIDURAL SCH (09:15)
[2016-11-01] MEDS ORDERED: ONDANSETRON 4MG/2ML VIAL (J2405) IV PRN ×2 (09:15→17:15)
[2016-11-01] MEDS ORDERED: ePHEDrine SULFATE 25 MG/5 ML(5MG/ML) SYRINGE IV PRN (09:15)
[2016-11-01] MEDS ORDERED: REFRIGERATOR IV KEYS XX PRN (09:15)
[2016-11-01] MEDS ORDERED: EPIDURAL/PCA KEYS XX PRN (09:15)
[2016-11-01] MEDS ORDERED: OXYTOCIN DRIP 30 UNITS in APPROPRIATE DILUENT 1 EA IV SCH (17:09)
[2016-11-01] MEDS ORDERED: METHYLERGONOVINE MALEATE 0.2 MG/ML VIAL (J2210) IM PRN (17:15)
[2016-11-01] MEDS ORDERED: ACETAMINOPHEN 500 MG TAB PO PRN (17:15)
[2016-11-01] MEDS ORDERED: PROMETHAZINE 25 MG TAB PO PRN (17:15)
[2016-11-01] MEDS ORDERED: RHOGAM 300 MCG (1500 IU) INJ (J2790) IM SCH (17:15)
[2016-11-01] MEDS ORDERED: DIBUCAINE 1% OINTMENT 30GM TOP PRN (17:15)
[2016-11-01] MEDS ORDERED: MEASLES,MUMPS,RUBELLA VACCINE INJ (MMR-II) (90707) SC SCH (17:15)
[2016-11-01] MEDS: IBUPROFEN 800 MG TAB PO PRN (17:38)
[2016-11-01] MEDS: DOCUSATE SODIUM 100 MG CAP PO SCH (20:24)
[2016-11-02 06:00] VITALS: BP 130/58
[2016-11-02] MEDS: IBUPROFEN 800 MG TAB PO PRN ×2 (06:26→21:32)
[2016-11-02] MEDS: PRENATAL VITAMINS CHEWABLE TABLET PO SCH (09:36)
[2016-11-02] MEDS: DOCUSATE SODIUM 100 MG CAP PO SCH ×2 (09:36→21:00)
[2016-11-02 18:00] VITALS: BP 118/58
[2016-11-03 06:41] VITALS: BP 118/61
[2016-11-03] MEDS: DOCUSATE SODIUM 100 MG CAP PO SCH (09:08)
[2016-11-03] MEDS: PRENATAL VITAMINS CHEWABLE TABLET PO SCH (09:08)
--- NOTE | 2016-11-03 16:07 | DSES ---
DATE OF ADMISSION: 10/31/2016 DATE OF DISCHARGE: 11/03/2016 HISTORY OF PRESENT ILLNESS: This lady is a 21-year-old 1, now para 1, admitted at 39 weeks and one day of gestation with spontaneous rupture of membranes and contractions. With epidural in place, had a spontaneous vaginal delivery female 8 pounds 13 ounces 4010 grams, scores of 8 and 9 at one and five minutes respectively. She had a small first-degree tear and initial report said she had a two-vessel cord. The delivering priming machine operator said there was a three-vessel cord. There is no pathology to document either/or. On her second day, we discussed phlebitis, cystitis, mastitis, metritis and cellulitis, diet, exercise, pain management, perineal, breast, and wound care. Her hemoglobin is 12.1, hematocrit 34.9 and platelets are 271. Her chemistry was within normal limits. OBJECTIVE: Her vital signs on discharge, her blood pressure 118/61, respirations are 20, pulse 83 and temperature is 97.8. The rest of the examination is unremarkable. She is normocephalic, atraumatic. Neck full range of motion. Pupils equal and reactive to light. Distal pulses symmetric. No evidence of deep venous thrombosis (DVT), pulmonary embolism (PE) or superficial phlebitis. Chest is clear bilaterally to bases. No wheezes or rhonchi. No costovertebral angle tenderness. Abdomen is soft. Bowel sounds are present. Uterus two below. Lochia is moderate. The patient was concerned because when she was breast-feeding, she expressed a clot per vagina, but we reviewed it, appeared to be normal, well congealed and coagulated and this was within normal limits for breast feeding moms. She has no rashes, lesions or pruritus. No arthralgia, myalgia or complaints of cough, wheezes, shortness of breath or dyspnea on exertion. No chest pain. No bleeding. Neuro complete. No urgency, frequency. No nausea, vomiting, diarrhea or constipation. No diabetic issues. Past gynecologic ([employer]), medical and surgical history unremarkable. She does not smoke, drink, abuse drugs. There is no domestic violence. In summary, we have a term gestation, active labor, delivered a live female, discharged with medications. Will discuss control at her six-week checkup.
== END 2016-11-03 11:45 | disposition home or self-care (01) | DRG 775 ==
LOC: M LDO 21:18 → M LDI 21:50 → M OBS 11-01 18:15
PROVIDERS: ADMIT Obstetrics & Gynecology; ATTEND Obstetrics & Gynecology
PROC: 10E0XZZ Delivery of Products of Conception, External Approach (ICD-10-PCS; principal; 2016-11-01)
PROC: 0HQ9XZZ Repair Perineum Skin, External Approach (ICD-10-PCS; 2016-11-01)
DX: O70.0 First degree perineal laceration during delivery (principal); Z37.0 Single live birth; Z3A.39 39 weeks gestation of pregnancy; Z91.010 Allergy to peanuts; Z91.040 Latex allergy status